=== PATIENT | female | born 1980 | race Caucasian/White ===

== ENCOUNTER 2018-09-27 21:28 | Emergency (ER) | payer OTHER ==
[2018-09-27 21:36] VITALS: BP 148/92
[2018-09-27] MEDS ORDERED: Fluorescein Sodium TOPICAL* 1 MG TEST STRIP OPHTHALMIC ONE (21:41)
[2018-09-27] MEDS ORDERED: Tetracaine 0.5% OPTH.SOL 4 ML* 1 DROP BTL ONE (21:42)
--- NOTE | 2018-09-27 21:57 | ED ---
Throat Pain/Nasal Congestion - HPI Summary HPI Summary: 38 yr old female with the complaint of splashed grease in right eye this evening prior to coming here. She is not in pain. She has no blurred vision. She does not wear contact lenses. She washed her eye with water prior to coming here. - History of Current Complaint Chief Complaint: UCEye Time Seen by Provider: 09/27/18 21:40 - Allergies/Home Medications Allergies/Adverse Reactions: Allergies Allergy/AdvReac Type Severity Reaction Status Date / Time topiramate [From Topamax] Allergy See Comment Verified 09/27/18 21:37 Home Medications: Home Medications Eletriptan HBr [Relpax] 40 mg PO 09/27/18 [History] Ibuprofen 400 mg PO 09/27/18 [History] PMH/Surg Hx/FS Hx/Imm Hx Infectious Disease History: No Infectious Disease History: Denies: Traveled Outside the [place] in Last 30 Days - Family History Known Family History: Positive: None - Social History Occupation: Employed Full-time Alcohol Use: Rare Substance Use Type: Reports: None Smoking Status (MU): Never Smoked Tobacco Review of Systems Constitutional: Negative Positive: Blurred Vision. Negative: Photophobia, Diplopia, Drainage, Erythema All Other Systems Reviewed And Are Negative: Yes Physical Exam Triage Information Reviewed: Yes Vital Signs On Initial Exam: Initial Vitals Temp Pulse Resp BP Pulse Ox 98.4 F 85 18 148/92 98 09/27/18 21:33 09/27/18 21:33 09/27/18 21:33 09/27/18 21:33 09/27/18 21:33 Vital Signs Reviewed: Yes Appearance: Positive: Well-Appearing, No Pain Distress Skin: Positive: Warm, Skin Color Reflects Adequate Perfusion Head/Face: Positive: Normal Head/Face Inspection Eyes: Positive: EOMI, LOAN, Conjunctiva Clear, Other: - the right eye was examined with fulglow and wood lamp. No uptake no evidence of corneal injury. No aguilar to the lids.. Negative: Conjunctiva Inflammed ENT: Positive: Normal ENT inspection Neck: Positive: Nontender Respiratory/Lung Sounds: Positive: Clear to Auscultation, Breath Sounds Present Cardiovascular: Positive: RRR. Negative: Murmur Abdomen Description: Negative: Distended Musculoskeletal: Positive: Strength/ROM Intact Neurological: Positive: Sensory/Motor Intact, Alert, Oriented to Person Place, Time, CN Intact II-III, Normal Gait, Speech Normal Psychiatric: Positive: Normal Diagnostics - Vital Signs Vital Signs Temp Pulse Resp BP Pulse Ox 09/27/18 21:33 98.4 F 85 18 148/92 98 - Laboratory Lab Statement: Any lab studies that have been ordered have been reviewed, and results considered in the medical decision making process. EENT Course/Dx - Course Course Of Treatment: 38 yr old female with grease to eye without any evidence of burn on exam. PLan dc home. BP recheck with PMD> - Diagnoses Provider Diagnoses: Right eye injury, Hypertension Discharge - Sign-Out/Discharge Documenting (check all that apply): Patient Departure All imaging exams completed and their final reports reviewed: No Studies - Discharge Plan Condition: Good Disposition: HOME Patient Education Materials: Chemical Eye Aguilar (ED), Hypertension (ED) Referrals: Orly Jacome DO [Primary Care Provider] - 5 Days - Billing Disposition and Condition Condition: GOOD Disposition: Home
== END 2018-09-27 22:00 | disposition home or self-care (01) ==
LOC: UCEAST 21:28
DX: S05.91XA Unspecified injury of right eye and orbit, initial encounter (principal); X10.2XXA Contact with fats and cooking oils, initial encounter; Y93.G3 Activity, cooking and baking; Y92.9 Unspecified place or not applicable; I10 Essential (primary) hypertension; Z88.8 Allergy status to other drugs, medicaments and biological substances
CPT/HCPCS: 99211; A9270-GY; G0463